=== PATIENT | female | born 1980 | race Caucasian/White ===

== ENCOUNTER 2017-02-17 07:44 | Observation (INO) | payer BC, MEDICAID ==
[~2017-02-17] VITALS: Ht 165.1 cm; Wt 111.1 kg
[2017-02-17] MEDS ORDERED: PNV1TABL76 PO (07:57)
[2017-02-17] MEDS ORDERED: FLUO20CA33 PO (07:57)
[2017-02-17] MEDS ORDERED: QUET200T PO (07:57)
[2017-02-17] MEDS ORDERED: ONDANSETRON HCL 4MG/2ML VIAL IV NR (08:07)
[2017-02-17] MEDS ORDERED: SODIUM CHLORIDE 0.9% 1,000 ML IV ONE (08:15)
[2017-02-17 09:00] LABS: CHLORIDE 105 mEq/L (98-107)
[2017-02-17] MEDS ORDERED: MVI, ADULT NO.1 10 ML in SODIUM CHLORIDE 0.9% 1,000 ML IV ONE ×2 (09:00)
[2017-02-17 09:05] LABS: CARBON DIOXIDE 23 mEq/L (21-32)
[2017-02-17 09:54] LABS: CLARITY URINE CLEAR (CLEAR); COLOR URINE YELLOW (YELLOW); KETONES URINE 1+ (NEGATIVE); LEUKOCYTE ESTERASE URINE NEGATIVE (NEGATIVE); NITRITE URINE NEGATIVE (NEGATIVE); OCCULT BLOOD URINE NEGATIVE (NEGATIVE); PH URINE 6.5 (4.5-8.0); PROTEIN URINE NEGATIVE (NEGATIVE); SPECIFIC GRAVITY URINE 1.022 (1.005-1.030)
== END 2017-02-17 10:40 | disposition home or self-care (01) ==
LOC: L&D 07:44
PROVIDERS: ADMIT Specialist; ATTEND Specialist
DX: O26.892 Other specified pregnancy related conditions, second trimester (principal); R10.9 Unspecified abdominal pain; R11.2 Nausea with vomiting, unspecified; Z3A.26 26 weeks gestation of pregnancy
CPT/HCPCS: 36415; 80051; 81003; 82565; 84520; 96361; 96374; 99281; G0378; J2405; J3490; J7040; 96360; 96375; J7030